=== PATIENT | male | born 1965 | race Caucasian/White ===

== ENCOUNTER → 2017-03-20 | Outpatient (CLI) | payer OTHER | LOC: BMCIMAGING 14:35 | PROVIDERS: ATTEND Orthopaedic Surgery Hand Surgery | DX: S62.364D Nondisplaced fracture of neck of fourth metacarpal bone, right hand, subsequent encounter for fracture with routine healing (principal) ==

== ENCOUNTER → 2017-04-08 | Outpatient (CLI) | payer OTHER | LOC: BMCIMAGING 14:30 | PROVIDERS: ATTEND Orthopaedic Surgery Hand Surgery | DX: S62.364D Nondisplaced fracture of neck of fourth metacarpal bone, right hand, subsequent encounter for fracture with routine healing (principal) ==

== ENCOUNTER → 2017-11-06 | Outpatient (CLI) | payer OTHER | LOC: BMCIMAGING 16:32 | PROVIDERS: ATTEND Orthopaedic Surgery Hand Surgery | DX: M79.644 Pain in right finger(s) (principal) ==